=== PATIENT | female | born 1990 | race Caucasian/White ===

== ENCOUNTER 2017-05-12 12:44 | Inpatient (IN) | payer MEDICAID ==
[2017-05-12] VITALS (9 sets, daily range): BP systolic 104–146; BP diastolic 54–85; PULSE 57–88; RESP 18–20; TEMP 97.6–97.9; O2SAT 100
[~2017-05-12] VITALS: Ht 177.8 cm; Wt 154.0 kg
[~2017-05-12 12:44] MED LIST: AUGM875T PO; Z.0.BCPILL PO
[2017-05-12] MEDS ORDERED: LACTATED RINGER'S 1000 ML INJ 1,000 ML IV ONE (13:37)
--- NOTE | 2017-05-12 13:55 | HHI.HP ---
History & Physical H&P HPI Chief Complaint Scheduled C/S Travel History International Travel<30 Days: No Contact w/Intl Traveler<30Days: No Known Affected Area: No History of Present Illness HPI 27-year-old , IUP at 37.3 care complicated by morbid obesity, and prior delivery for arrest of dilation at 8 cm for a 8 lbs. 15 oz. The patient presents for scheduled C/S today. She was previously seen for consultation but after lengthy discussion of the risks benefits and alternatives she decided to proceed with the scheduled delivery. She denies any leaking of fluid or vaginal bleeding. She denies any painful contractions. She reports good movement. She has no other complaints except to report occasional and irregular pelvic pressure and non-painful contractions that are irregular. Weeks Gestation: 39.2 Para: 1 : 2 History Past Medical History Narrative Medical Morbid obesity Obstetric History Obstetric History 001 Full-term delivery at 42 weeks for an 8 lbs. 15 oz. with arrest of dilation; review of operative report reveals that patient was 7-8 cm for over 6 hours prior to delivery by Menarche at age 12, menses are irregular and last 2 days Denies any abnormal Pap smears or STDs Past Surgical History Narrative Surgical delivery Tonsillectomy Family History Narrative Family History TM HTN CAD/[place] CVA Spinal stenosis Autoimmune disease (she reports her mother alone has over 53 diagnosed autoimmune diseases) disease Social History Alcohol Use: No Tobacco Use: No Substance Abuse: No Allergies-Medications (Allergen,Severity, Reaction): Coded Allergies: latex (Unverified Allergy, Severe, rash, 02/10/17) Home Meds Active Scripts Amoxicillin & Pot Clavulanate 875 mg Tab (Augmentin 875 mg Tab) 875 Mg Tab, 875 MG PO Q12 for 10 Days Prov:Kranthi Sahu MD 02/27/15 Reported Medications Miscellaneous ( Control Pills) Tab, 1 TAB PO DAILY, TAB 10/01/14 Review of Systems Except as stated in HPI: Complete 12 system review of systems was performed and all systems are negative Physical Exam Narrative GENERAL: Well-nourished, well-developed patient. SKIN: Warm and dry. HEAD: Normocephalic and atraumatic. EYES: grossly normal ENT: deferred NECK: deferred CARDIOVASCULAR: Regular rate and rhythm RESPIRATORY: Clear to auscultation bilaterally BREASTS: deferred ABDOMEN/GI: Obese, nontender nondistended, normoactive bowel sounds GENITOURINARY: deferred EXTREMITIES: No cyanosis or edema. BACK: deferred NEUROLOGICAL: Awake and alert. Motor and sensory grossly within normal limits. Psychiatric: Grossly normal memory and affect, rest grossly normal Musculoskeletal: Grossly normal gait and muscle strength, rest grossly normal MDM Plan Assessment/plan: 1. IUP at 39.2 2. Morbid obesity 3. Prior delivery for arrest of dilation: Review of the records indicated the patient had arrest of dilation at 7-8 cm for over 6 hours. 4. Repeat C/S: We rediscussed at length the risks benefits and alternatives to vaginal delivery after . The patient desires to proceed with repeat delivery today. She is comfortable with this decision, and no longer desires based on her low chance of success and other comorbidities. We discussed the risks of delivery at length including but not limited to pain, infection, bleeding, injury to other organs like the bladder, bowels, nerves, vessels; we discussed the risk of bleeding that might require blood transfusion blood transfusion or even hysterectomy. We discussed the risk of infection that is increased due to her body habitus with the risk of wound breakdown. We discussed the possible need for repeat operation and other possible complications. All the patient's questions were answered. The patient had several questions including about method of closure, we discussed utilization of surgical clips versus suture. The patient has specifically requested the utilization of surgical rachel to close her wound incision as opposed to our typical suture so we will comply with her wishes. 5. well-being: Reassuring testing with reactive NST Rocio Moe MD May 12, 2017 13:55
[2017-05-12] MEDS ORDERED: LACTATED RINGER'S 1000 ML INJ 1,000 ML IV SCH ×2 (14:07→22:12)
[2017-05-12 14:35] LABS: AUTOMATED NEUTROPHIL # 9.5 TH/MM3 (1.8-7.7); BASOPHIL # 0.1 TH/MM3 (0-0.2); BASOPHIL % 0.4 % (0.0-2.0); EOSINOPHIL % 0.2 % (0.0-4.0); HEMATOCRIT 32.2 % (35.0-46.0); HEMO FLAGS DIFF FINAL; LYMPH % 15.4 % (9.0-44.0); LYMPHOCYTE # 1.9 TH/MM3 (1.0-4.8); MEAN CELL VOLUME 78.6 FL (80.0-100.0); MEAN CORPUSCULAR HGB CONC 31.8 % (32.0-36.0); MONO % 6.7 % (0.0-8.0); NEUT % 77.3 % (16.0-70.0); PLATELET COUNT 383 TH/MM3 (150-450); RED CELL DISTRIBUTION WIDTH 16.1 % (11.6-17.2); WHITE BLOOD COUNT 12.3 TH/MM3 (4.0-11.0)
[2017-05-12 14:44] LABS: BLOOD, URINE NEG (NEG); COMMENT (UR) CULT NOT INDICATED; CULTURE IF INDICATED CULT NOT INDICATED; GLUCOSE,URINE NEG (NEG); KETONE, URINE 40 mg/dL (NEG); MUCUS URINE FEW /lpf (OCC); NITRITE,URINE NEG (NEG); SQUAMOUS EPITHELIAL CELL URINE <1 /hpf (0-5); URINE COLOR DARK-YELLOW (YELLW/STRAW)
[2017-05-12] MEDS ORDERED: ceFAZolin 2 GM PREMIX 50 ML IV SCH (14:45)
[2017-05-12] MEDS ORDERED: EPIDURAL-DIPHENHYDRAMINE HCL 50 MG CAP PO PRN (15:15)
[2017-05-12] MEDS ORDERED: EPIDURAL-NALOXONE HCL 0.4 MG/ML AMP IV PUSH PRN (15:15)
[2017-05-12] MEDS ORDERED: EPIDURAL-DO NOT ADMINISTER ANTICOAGULANTS PRN (15:15)
[2017-05-12] MEDS ORDERED: CITRIC ACID-SODIUM CITRATE LIQ 30 ML UDC PO SCH (15:15)
[2017-05-12] MEDS ORDERED: EPIDURAL-DIPHENHYDRAMINE HCL 50 MG/ML VIAL IV PUSH PRN (15:15)
[2017-05-12] MEDS ORDERED: EPIDURAL-NO SYSTEMIC NARCOTICS PRN (15:15)
[2017-05-12] MEDS ORDERED: SIMETHICONE 80 MG CHEWABLE TAB PO PRN (17:15)
[2017-05-12] MEDS ORDERED: KETOROLAC TROMETHAMINE 60 MG/2 ML (IM) VIAL IM PRN (17:15)
[2017-05-12] MEDS ORDERED: ZOLPIDEM TARTRATE 5 MG TAB PO PRN (17:15)
[2017-05-12] MEDS ORDERED: OXYTOCIN 30 UNITS-500ML PREMIX 500 ML IV ONE (17:15)
[2017-05-12] MEDS ORDERED: SODIUM CHLORIDE 0.9% FLUSH 10 ML FLUSH IV FLUSH PRN (17:15)
[2017-05-12] MEDS ORDERED: ONDANSETRON HCL 4 MG/2 ML VIAL IV PUSH PRN (17:15)
--- NOTE | 2017-05-12 17:28 | PD.OB.DELI ---
Procedure Note Section Procedure Performed by Rocio Moe Procedure: Repeat Low Transverse Sec Indication for delivery: Desired elective repeat Previous condition: None Informed consent obtained: For anesthesia, For procedure Confirmed correct: Patient, Procedure, Site, Time-out taken Anesthesia: Spinal Medication prior to procedure: As documented in eMAR, Antibiotics, IV Monitoring during procedure: Blood pressure monitoring, personnel monitor, Pulse oximetry Urinary catheter: Inserted using sterile technique, To dependent drainage, ml urine output (50) Sterile preparation: In usual fashion, With drapes to expose affected area, Other (Chloraprep) Position: Supine with wedge to left side Operative Features Skin Incision: Pfannenstiel Uterine Incision: Low transverse w/knife / blunt ext Membranes Ruptured: Artificially Presentation: Occiput anterior Delivery date: May 12, 2017 Delivery time: 15:42 Delivery of : Uneventful Infant: Male One Minute : 8 Five Minute : 8 Status of : Viable, Cord blood Placenta delivered: Intact Medications: Antibiotics, Oxytocin Estimated blood loss: 700 Procedure tolerated: Well Maternal Condition: Stable Condition: Stable (transferred to NICU for supplemental oxygen) Procedure in detail See dictation Rocio Moe MD May 12, 2017 17:28
[2017-05-12] MEDS ORDERED: SODIUM CHLORIDE 0.9% FLUSH 10 ML FLUSH IV FLUSH SCH (21:00)
[2017-05-13 00:30] VITALS: BP 116/59; PULSE 74; RESP 16; TEMP 98.1; O2SAT 98
[2017-05-13] MEDS ORDERED: OXYTOCIN 30 UNITS-500ML PREMIX 500 ML IV PRN (03:15)
[2017-05-13 04:30] VITALS: BP 118/56; PULSE 71; RESP 16; TEMP 97.7
[2017-05-13 05:59] LABS: AUTOMATED NEUTROPHIL # 8.6 TH/MM3 (1.8-7.7); BASOPHIL % 0.2 % (0.0-2.0); EOSINOPHIL # 0.1 TH/MM3 (0-0.4); EOSINOPHIL % 0.5 % (0.0-4.0); HEMATOCRIT 28.2 % (35.0-46.0); HEMO FLAGS DIFF FINAL; LYMPH % 16.7 % (9.0-44.0); MEAN CELL VOLUME 79.3 FL (80.0-100.0); MEAN CORPUSCULAR HGB CONC 31.5 % (32.0-36.0); MONO % 8.6 % (0.0-8.0); PLATELET COUNT 286 TH/MM3 (150-450); RED BLOOD COUNT 3.55 MIL/MM3 (4.00-5.30); RED CELL DISTRIBUTION WIDTH 15.7 % (11.6-17.2); WHITE BLOOD COUNT 11.7 TH/MM3 (4.0-11.0)
--- NOTE | 2017-05-13 07:01 | MP ---
cc: ROCIO MOE MD DATE OF SURGERY 05/12/2017 PREOPERATIVE DIAGNOSIS 1. Intrauterine at 39 weeks and 2 days. 2. Morbid obesity 3. Prior delivery times one. 4. History of arrest of dilation at 7-8 cm for greater than six hours. POSTOPERATIVE DIAGNOSIS 1. Intrauterine at 39 weeks and 2 days. 2. Morbid obesity 3. Prior delivery times one. 4. History of arrest of dilation at 7-8 cm for greater than six hours. SURGEON Rocio Moe MD [employer] MD Rosa Hutchinsonenrique Brown PROCEDURE PERFORMED Repeat low transverse section with two layer closure, no extensions by Pfannenstiel skin incision. INDICATIONS The patient is a 27-year-old 2 para 1-0-0-1 who presented at 39 for a scheduled repeat delivery. FINDINGS A viable male in cephalic presentation with 's of 8 and 8, weight as per electronic medical record. SPECIMENS REMOVED Placenta ESTIMATED BLOOD LOSS 700 cc URINE OUTPUT 50 cc clear urine at the end of the procedure, however concentrated. IV FLUIDS Two liters lactated Ringer's PROCEDURE DESCRIPTION Informed consent was obtained from the patient with risks, benefits and alternatives discussed at length including, but not limited to pain, infection, bleeding, injury to other organs like the bladder, bowel, nerves and vessels, injury to the baby, need for a repeat operation, need for a blood transfusion, need for a hysterectomy, wound infection or breakdown and other possible complications. It was discussed with the patient that she has an increased risk of wound infection or breakdown due to her body habitus. Of note, the patient has done research and specifically requested the use of surgical rachel for skin closure. All of her questions were answered and consent was obtained. The patient was taken to the operating room with reassuring heart tones and IV fluids running. After arrival in the operating room, the patient underwent spinal anesthesia. Reassuring heart tones were confirmed and a Villarreal catheter was placed. The patient was prepped and draped in the normal sterile fashion and a time out procedure was performed. After once again confirming adequate anesthesia, the patient was prepped and draped in the normal sterile fashion. A Pfannenstiel skin incision was made with the scalpel and carried down to the fascia with the scalpel. The fascia was nicked in the midline with the scalpel and the fascial incision extended laterally with curved Schneider scissors. The Shannan clamps were applied to the superior aspect of the fascial incision which was dissected off the underlying rectus muscles bluntly. Shannan clamps were applied to the inferior aspect and the fascial incision which was dissected off in a similar fashion. The rectus muscles were then in the midline and the peritoneum entered bluntly. The peritoneal incision was extended bluntly. The Willy self-containing wound retractor was placed. The vesicouterine peritoneum was identified, grasped with pick ups and entered sharply with the Metzenbaum scissors. This incision was extended laterally and the bladder flap created digitally. The lower uterine segment was thinned out with a scalpel and the hysterotomy was extended bluntly. The vertex was elevated to the level of the hysterotomy and delivered atraumatically. The nose and mouth were suctioned with a bulb suction and the remainder of the delivered atraumatically. After a delay of 45 seconds, the cord was doubly clamped and cut and the vigorous passed off to the awaiting neonatology team. The placenta was removed manually and the uterus was cleared of all clots and debris. The hysterotomy was repaired with a #1 chromic in a running locked fashion. A second layer was closed with the same suture. There was some bleeding at the mid portion of the hysterotomy which was noted to be hemostatic after placement of an additional [id number]-cb-chooy stitch. The hysterotomy was reinspected and noted to be hemostatic. The Willy self-containing wound retractor was removed and the gutters cleared of all clots and debris. The hysterotomy was reinspected and noted to be hemostatic. The peritoneum was reapproximated with 2-0 Vicryl in a running fashion. The rectus muscles were examined and confirmed to be hemostatic. The fascia was reapproximated with #1 Vicryl in a running fashion. No fascial defects were noted. The subcutaneous tissue was irrigated with warm normal saline and noted to be hemostatic. The subcutaneous tissue was closed with #1 Vicryl in an interrupted fashion. The skin edges were reapproximated with surgical rachel. A silver impregnated dressing was placed. All sponge, lap and needle counts were correct times two. I performed the entire procedure with the assistance of Dr. Yan. The patient was noted to be making clear urine at the end of the procedure. MD FRANK Wheeler/LEOLA /11:23 PM /6:49 AM
[2017-05-13 08:20] VITALS: BP 137/69; PULSE 66; RESP 18; TEMP 97.7
[2017-05-13] MEDS: ACETAMINOPHEN 325 MG TAB PO PRN (10:57)
[2017-05-13] MEDS: oxyCODONE/ACETAMINOPHEN 5 MG/325 MG TAB PO PRN ×3 (14:37→22:33)
[2017-05-13] MEDS: IBUPROFEN 600 MG TAB PO PRN ×2 (14:37→20:55)
[2017-05-13] MEDS ORDERED: DIPHTH/TETANUS/ACEL PERTUSSIS (BOOSTER) 0.5 ML VIAL/PFS IM ONE (16:00)
[2017-05-13] MEDS ORDERED: MEASLES, MUMPS, RUBELLA VACCINE 0.5 ML VIAL SQ ONE (16:00)
[2017-05-13 20:50] VITALS: BP 130/77; PULSE 66; RESP 16; TEMP 97.9
[2017-05-13] MEDS: DOCUSATE SODIUM 50 MG/SENNA 8.6 MG TAB PO PRN (20:55)
[2017-05-14] MEDS: oxyCODONE/ACETAMINOPHEN 5 MG/325 MG TAB PO PRN ×4 (02:46→20:48)
[2017-05-14] MEDS: IBUPROFEN 600 MG TAB PO PRN ×3 (02:46→16:20)
[2017-05-14 08:40] VITALS: BP 134/83; PULSE 85; RESP 20; TEMP 98.1; O2SAT 98
--- NOTE | 2017-05-14 08:53 | HHI.OB ---
Subjective Post Operative Day: 2 Remarks Patient is postop day 2 from repeat , she doing well this time tolerating diet and ambulating well, had positive flatus but no BM Objective Vitals/I&O Vital Signs Date Time Temp Pulse Resp B/P (MAP) Pulse Ox O2 Delivery O2 Flow Rate FiO2 05/13/17 20:50 97.9 66 16 05/13/17 20:50 130/77 (94) Result Diagram: 05/13/17 0502 Objective Remarks GENERAL: Well-nourished, well-developed patient. CARDIOVASCULAR: Regular rate and rhythm without murmurs, gallops, or rubs. RESPIRATORY: Breath sounds equal bilaterally. No accessory muscle use. ABDOMEN/GI: Abdomen obese soft, non-tender, bowel sounds present. Incision: Clean, dry and intact ,.silver 7 day dressing intact and there is no leakage or redness around the wound Fundus: Firm, non-tender at umbilicus. GENITOURINARY: Light to moderate bleeding. EXTREMITIES: No cyanosis or edema, non-tender, without signs of DVT. Medications and IVs Current Medications Medications (Trade) Dose Ordered Sig/Jaswant Route Start Time Stop Time Status Last Admin (NS Flush) 2 ml BID IV FLUSH 05/12/17 21:00 (NS Flush) 2 ml UNSCH PRN IV FLUSH 05/12/17 17:15 (Mylicon Chew) 80 mg QID PRN PO 05/12/17 17:15 05/13/17 20:55 (Tylenol) 650 mg Q6H PRN PO 05/12/17 17:15 05/13/17 10:57 (Motrin) 600 mg Q6H PRN PO 05/12/17 17:15 05/14/17 02:46 (Percocet 5-325 Mg) 1 tab Q4H PRN PO 05/12/17 17:15 05/14/17 02:46 (Percocet 5-325 Mg) 2 tab Q4H PRN PO 05/12/17 17:15 05/13/17 18:22 (Beverly-Colace) 2 tab Q12H PRN PO 05/12/17 17:15 05/13/17 20:55 (Ambien) 5 mg HS PRN PO 05/12/17 17:15 (Zofran Inj) 4 mg Q6H PRN IV PUSH 05/12/17 17:15 05/12/17 20:08 Assessment/Plan Assessment and Plan Patient is postop day 2 from a repeat and doing well normal advancement and postop care progression The patient to potentially be discharged later today. Eddie Bravo II, MD May 14, 2017 08:53
[2017-05-14] MEDS: DOCUSATE SODIUM 50 MG/SENNA 8.6 MG TAB PO PRN (09:59)
[2017-05-14 20:00] VITALS: BP 136/74; PULSE 89; RESP 18; TEMP 98
[2017-05-15] MEDS: IBUPROFEN 600 MG TAB PO PRN ×2 (00:26→12:44)
[2017-05-15] MEDS: DOCUSATE SODIUM 50 MG/SENNA 8.6 MG TAB PO PRN (00:26)
[2017-05-15] MEDS: oxyCODONE/ACETAMINOPHEN 5 MG/325 MG TAB PO PRN (00:27)
[2017-05-15 08:00] VITALS: BP 125/63; PULSE 72; RESP 16; TEMP 98.2; O2SAT 98
--- NOTE | 2017-05-15 08:37 | HHI.OB ---
Subjective Post Operative Day: 3 Remarks Patient is a 27-year-old who is day 3 after repeat . Patient's pain is well-controlled. Patient reports eating and drinking without any nausea or vomiting. Patient reports minimal bleeding. Patient has passed gas and bowel movements. Patient is walking without lower extremity pain or shortness of breath. Patient reports desire for contraception through her outpatient provider and breast-feeding. Objective Vitals/I&O Vital Signs Date Time Temp Pulse Resp B/P (MAP) Pulse Ox O2 Delivery O2 Flow Rate FiO2 05/14/17 20:00 98.0 18 05/14/17 20:00 89 136/74 (94) 05/14/17 08:40 134/83 (100) 05/14/17 08:40 98.1 85 20 98 Result Diagram: 05/13/17 0502 Objective Remarks GENERAL: Well-nourished, well-developed patient. CARDIOVASCULAR: Regular rate and rhythm without murmurs, gallops, or rubs. RESPIRATORY: Breath sounds equal bilaterally. No accessory muscle use. ABDOMEN/GI: Abdomen obese soft, non-tender, bowel sounds present. Incision: Clean, dry and intact ,.silver 7 day dressing intact and there is no leakage or redness around the wound Fundus: Firm, non-tender at umbilicus. GENITOURINARY: Light to moderate bleeding. EXTREMITIES: No cyanosis or edema, non-tender, without signs of DVT. Medications and IVs Current Medications Medications (Trade) Dose Ordered Sig/Jaswant Route Start Time Stop Time Status Last Admin (NS Flush) 2 ml BID IV FLUSH 05/12/17 21:00 (NS Flush) 2 ml UNSCH PRN IV FLUSH 05/12/17 17:15 (Mylicon Chew) 80 mg QID PRN PO 05/12/17 17:15 05/13/17 20:55 (Tylenol) 650 mg Q6H PRN PO 05/12/17 17:15 05/13/17 10:57 (Motrin) 600 mg Q6H PRN PO 05/12/17 17:15 05/15/17 00:26 (Percocet 5-325 Mg) 1 tab Q4H PRN PO 05/12/17 17:15 05/15/17 00:27 (Percocet 5-325 Mg) 2 tab Q4H PRN PO 05/12/17 17:15 05/14/17 09:59 (Beverly-Colace) 2 tab Q12H PRN PO 05/12/17 17:15 05/15/17 00:26 (Ambien) 5 mg HS PRN PO 05/12/17 17:15 (Zofran Inj) 4 mg Q6H PRN IV PUSH 05/12/17 17:15 05/12/17 20:08 Assessment/Plan Problem List: (1) S/P ICD Codes: Z98.891 - History of uterine scar from previous surgery Assessment and Plan Patient is a 27-year-old who is day 3 after repeat . Patient was counseled to do 6 weeks of pelvic rest. Patient was counseled to follow up in one week and again in 6 weeks. Patient requested follow-up and contraception through her outpatient provider. --AF VSS --Continue routine care --Motrin and Percocet when necessary for pain --Encourage OOB --Pelvic rest for 6 weeks will need follow-up appointment at that time. Incision check in one week. --Contraception: Will arrange to her outpatient provider --Anticipate discharge today Discussed with Dr. Moe. Discharge Planning Anticipate discharge today. Shoaib Yan MD R2 May 15, 2017 08:37
--- NOTE | 2017-05-15 08:42 | HHI.DCPOC ---
Discharge Care Plan Report Symptoms to Your Doctor -Temperature above 100.5 degrees -Redness, of incision or excessive or foul smelling drainage -Unusual pain or calf pain -Increased vaginal bleeding -Painful or difficulty urinating -Feelings of extreme sadness or anxiety after 2 weeks Goals to Promote Your Health * To prevent worsening of your condition and complications * To maintain your health at the optimal level Directions to Meet Your Goals Take your medications as prescribed Follow your dietary instruction Follow activity as directed Ensure plenty of rest for recovery Drink fluids for hydration Keep your appointments as scheduled Take your immunizations and boosters as scheduled If your symptoms worsen call your PCP, if no PCP go to Urgent Care Center or Emergency Room Smoking is Dangerous to Your Health. Avoid second hand smoke Call the 24-hour crisis hotline for domestic abuse at Lawrence Echevarria MD R1 May 15, 2017 08:42
[2017-05-15] MEDS ORDERED: OXYC1TAB63 PO (08:47)
[2017-05-15] MEDS ORDERED: IBUP-232 PO (08:47)
[2017-05-15] MEDS: ACETAMINOPHEN 325 MG TAB PO PRN (10:21)
== END 2017-05-15 13:55 | disposition home or self-care (01) | DRG 766 ==
LOC: H2EB 12:44 → H1EA 17:57
PROVIDERS: ADMIT Obstetrics & Gynecology; ATTEND Obstetrics & Gynecology
PROC: 10D00Z1 Extraction of Products of Conception, Low, Open Approach (ICD-10-PCS; principal; 2017-05-12)
DX: O34.211 Maternal care for low transverse scar from previous cesarean delivery (principal); E66.01 Morbid (severe) obesity due to excess calories; Z37.0 Single live birth; O99.214 Obesity complicating childbirth; O62.0 Primary inadequate contractions; Z3A.39 39 weeks gestation of pregnancy
CPT/HCPCS: 59025; 80307; 81001; 85025; 86850; 86900; 86901; 90707; J0690; J2405; J2590; J7120; Q0163